=== PATIENT | female | born 1970 | race Two or more races ===

== ENCOUNTER 2022-04-21 04:01 | Inpatient (IN) | payer OTHER ==
[2022-04-15 10:07] VITALS: BMI 23.3
[2022-04-21] MEDS ORDERED: ceFAZolin SODIUM 1 GM VIAL ONE ×2 (07:30→17:15)
[2022-04-21] MEDS ORDERED: CEFAZOLIN 2 GM in DEXTROSE 5%-WATER - 100 ML IVPB ONE (08:00)
[2022-04-21] MEDS ORDERED: LIDOCAINE HCL/PF 2% SDV 5ML VIAL ONE (08:34)
[2022-04-21] MEDS ORDERED: DEXAMETHASONE SOD PHOSPHATE 4 MG/1 ML VIAL ONE (08:34)
[2022-04-21] MEDS ORDERED: PROPOFOL 20 ML ONE ×2 (08:34→09:55)
[2022-04-21] MEDS ORDERED: MIDAZOLAM HCL 2 MG/2 ML SINGLE DOSE VIAL ONE (08:35)
[2022-04-21] MEDS ORDERED: BUPIVACAINE HCL/PF 0.25% (2.5MG/ML) 10 ML VIAL ONE (08:41)
[2022-04-21] MEDS ORDERED: BUPIVACAINE LIPOSOME/PF (EXPAREL) 266 MG/20 ML VIAL ONE (08:41)
[2022-04-21] MEDS ORDERED: ceFAZolin SODIUM 1 GM VIAL IVPB ONE (10:02)
[2022-04-21] MEDS ORDERED: ROCURONIUM BROMIDE 50 MG/5 ML SYRINGE ONE (11:14)
[2022-04-21] MEDS ORDERED: NEOSTIGMINE METHYLSULFATE 0.5 MG/ML - 10 ML MDV ONE (11:40)
[2022-04-21] MEDS ORDERED: GLYCOPYRROLATE 0.2 MG/1 ML VIAL ONE (11:40)
[2022-04-21] MEDS ORDERED: KETOROLAC TROMETHAMINE 30 MG/1 ML VIAL ONE (11:51)
[2022-04-21] MEDS ORDERED: IBUPROFEN 800 MG/8 ML IJ IVPB PRN (12:19)
[2022-04-21] MEDS ORDERED: ONDANSETRON 4 MG/2 ML VIAL IVPUSH PRN (12:19)
[2022-04-21] MEDS ORDERED: ACETAMINOPHEN 325 MG TABLET (FP) PO PRN (12:19)
[2022-04-21] MEDS ORDERED: oxyCODONE HCL 5 MG TABLET PO PRN (12:19)
[2022-04-21] MEDS ORDERED: BISACODYL 5 MG TABLET.DR (FP) PO PRN (12:19)
[2022-04-21] MEDS ORDERED: FENTANYL CITRATE/PF 50 MCG/ML VIAL ONE ×2 (12:34→12:40)
[2022-04-21] MEDS ORDERED: HYDROmorphone *PCA* 10MG/50ML DISP.SYRIN ONE (12:45)
[2022-04-21] MEDS ORDERED: ACETAMINOPHEN 1000 MG/100 ML BAG IVPB ONE (12:49)
[2022-04-21] MEDS ORDERED: HYDROmorphone *PCA* 10MG/50ML DISP.SYRIN PCA SCH (13:00)
[2022-04-21] MEDS: LACTATED RINGERS SOLUTION 1,000 ML IV SCH (14:40)
[2022-04-21] MEDS ORDERED: DEXTROSE 5%-WATER - 50 ML IVPB ONE (17:15)
[2022-04-21] MEDS: CEFAZOLIN 1 GM in DEXTROSE 5%-WATER - 1 GM/50 ML IVPB IVPB SCH (17:18)
[2022-04-21 20:40] LABS: HEMATOCRIT 33.9 % (32.4-45.2); HEMOGLOBIN 10.8 GM/dL (10.7-15.3); MCHC 31.7 g/dl (32.0-36.0)
[2022-04-21 20:44] LABS: MCH 24.3 pg (25.7-33.7); MEAN CELL VOLUME 76.7 fl (80-96); PLATELET COUNT 212 10^3/uL (134-434); RBC 4.42 M/mm3 (3.60-5.2); RDW 25.2 % (11.6-15.6); WHITE BLOOD COUNT 11.3 K/mm3 (4.0-10.0)
[2022-04-21 20:51] LABS: BLOOD UREA NITROGEN 9.8 mg/dL (7-18); CALCIUM 8.6 mg/dL (8.5-10.1)
[2022-04-21 20:55] LABS: CREATININE 0.8 mg/dL (0.55-1.3)
[2022-04-21] MEDS ORDERED: ENOXAPARIN NA (PORCINE) 40 MG/0.4 ML DISP.SYRIN SQ SCH (22:30)
[2022-04-21] MEDS: ENOXAPARIN NA (PORCINE) 40 MG/0.4 ML DISP.SYRIN SQ SCH (22:43)
[2022-04-22] MEDS ORDERED: DEXTROSE 5%-WATER - 50 ML IVPB ONE ×2 (01:15→09:19)
[2022-04-22] MEDS ORDERED: ceFAZolin SODIUM 1 GM VIAL ONE ×2 (01:15→09:19)
[2022-04-22] MEDS: CEFAZOLIN 1 GM in DEXTROSE 5%-WATER - 1 GM/50 ML IVPB IVPB SCH ×2 (01:22→09:23)
[2022-04-22] MEDS: SIMETHICONE 80 MG TAB.CHEW (FP) PO PRN ×2 (09:22→17:04)
[2022-04-22] MEDS ORDERED: ENOXAPARIN NA (PORCINE) 40 MG/0.4 ML DISP.SYRIN SQ SCH (10:00)
[2022-04-22] MEDS: HYDROXYCHLOROQUINE SO4 200 MG TABLET (FP) PO SCH (10:50)
[2022-04-22] MEDS: oxyCODONE HCL 5 MG TABLET PO PRN ×2 (10:50→17:04)
[2022-04-22 10:54] LABS: HEMATOCRIT 33.5 % (32.4-45.2); MCH 25.3 pg (25.7-33.7); MCHC 32.7 g/dl (32.0-36.0); MEAN CELL VOLUME 77.2 fl (80-96); MEAN PLT VOLUME 9.9 fl (7.5-11.1); PLATELET COUNT 206 10^3/uL (134-434); RBC 4.34 M/mm3 (3.60-5.2); RDW 25.3 % (11.6-15.6); WHITE BLOOD COUNT 9.3 K/mm3 (4.0-10.0)
[2022-04-22 11:31] LABS: CALCIUM 8.7 mg/dL (8.5-10.1)
[2022-04-22 11:35] LABS: CREATININE 0.7 mg/dL (0.55-1.3)
[2022-04-22] MEDS: LACTATED RINGERS SOLUTION 1,000 ML IV SCH (17:04)
[2022-04-22] MEDS: DOCUSATE SODIUM 100 MG CAPSULE (FP) PO PRN (17:10)
[2022-04-22] MEDS: ENOXAPARIN NA (PORCINE) 40 MG/0.4 ML DISP.SYRIN SQ SCH (21:24)
[2022-04-23] MEDS: SIMETHICONE 80 MG TAB.CHEW (FP) PO PRN ×2 (03:40→08:17)
[2022-04-23] MEDS: DOCUSATE SODIUM 100 MG CAPSULE (FP) PO PRN (03:40)
[2022-04-23] MEDS: oxyCODONE HCL 5 MG TABLET PO PRN ×2 (03:41→08:15)
[2022-04-23] MEDS: HYDROXYCHLOROQUINE SO4 200 MG TABLET (FP) PO SCH (10:38)
[2022-04-23 13:38] VITALS: BP 113/77; PULSE 98; TEMP 98.3
== END 2022-04-23 17:10 | disposition home or self-care (01) | DRG 519 ==
LOC: J2C 04:01 → J3W 14:54
PROVIDERS: ADMIT Obstetrics & Gynecology; ATTEND Obstetrics & Gynecology
PROC: 0UT70ZZ Resection of Bilateral Fallopian Tubes, Open Approach (ICD-10-PCS; 2022-04-21)
PROC: 0UT90ZZ Resection of Uterus, Open Approach (ICD-10-PCS; principal; 2022-04-21 09:00)
DX: D25.9 Leiomyoma of uterus, unspecified (principal)
CPT/HCPCS: 36415; 80048; 80053; 85027; 85610; 85730; 86850; 86900; 86901; 88302-TC; 88307-TC; 94010; 94760; C9803-CS; U0003; U0005

== ENCOUNTER 2022-05-03 14:54 | Emergency (ER) | payer OTHER ==
[2022-05-03 15:31] VITALS: BP 121/73; PULSE 97; TEMP 98.4; BMI 23.6
[2022-05-03] MEDS ORDERED: ACETAMINOPHEN 1000 MG/100 ML BAG IVPB ONE (17:50)
[2022-05-03] MEDS ORDERED: ONDANSETRON 4 MG/2 ML VIAL IVPUSH ONE (17:50)
[2022-05-03] MEDS ORDERED: SODIUM CHLORIDE 0.9% 500 ML INFUS.BAG IV ONE (17:50)
[2022-05-03] MEDS ORDERED: ONDANSETRON 4 MG/2 ML VIAL ONE (19:16)
[2022-05-03] MEDS ORDERED: ACETAMINOPHEN INJECTION 100 ML IVPB ONE (19:16)
[2022-05-03 19:57] LABS: BASO % 1.1 % (0-2.0); EOS % 6.3 % (0-4.5); HEMOGLOBIN 11.1 GM/dL (10.7-15.3); LYMPH % 32.3 % (8-40); MCH 24.8 pg (25.7-33.7); MCHC 31.7 g/dl (32.0-36.0); MEAN CELL VOLUME 78.1 fl (80-96); MEAN PLT VOLUME 9.5 fl (7.5-11.1); NEUT % 54.3 % (42.8-82.8); PLATELET COUNT 342 10^3/uL (134-434); RBC 4.48 M/mm3 (3.60-5.2); RDW 23.1 % (11.6-15.6); WHITE BLOOD COUNT 7.4 K/mm3 (4.0-10.0)
[2022-05-03 20:10] LABS: EPI CELLS 27 /uL (0-25.1); HYALINE CASTS 6 /uL (0-3.1); URINE APPEARANCE CLEAR; URINE BACTERIA 141 /uL (0-1359); URINE BILIRUBIN NEGATIVE (NEGATIVE); URINE COLOR YELLOW; URINE GLUCOSE (UA) NEGATIVE (NEGATIVE); URINE KETONE TRACE (NEGATIVE); URINE LEUK ESTERASE TRACE (NEGATIVE); URINE NITRITE NEGATIVE (NEGATIVE); URINE PROTEIN NEGATIVE (NEGATIVE); URINE RBC 9 /uL (0-23.9); URINE UROBILINOGEN 0.2 mg/dL (0.2-1.0); URINE WBC 28 /uL (0-25.8)
[2022-05-03 20:17] LABS: BLOOD UREA NITROGEN 8.5 mg/dL (7-18); CALCIUM 9.5 mg/dL (8.5-10.1)
[2022-05-03 20:18] LABS: ALBUMIN 3.9 g/dl (3.4-5.0); MAGNESIUM 2.4 mg/dL (1.8-2.4)
[2022-05-03 20:20] LABS: CREATININE 0.7 mg/dL (0.55-1.3)
[2022-05-03 20:22] LABS: BILIRUBIN,TOTAL 0.4 mg/dL (0.2-1); TOT PROT 8.4 g/dl (6.4-8.2)
[2022-05-03 21:03] LABS: ANISOCYTOSIS 3+; MACROCYTOSIS 0; OVALOCYTE 1+; PLATELET ESTIMATE NORMAL
== END 2022-05-03 23:47 | disposition home or self-care (01) ==
LOC: JER 14:54
PROC: 3E0333Z Introduction of Anti-inflammatory into Peripheral Vein, Percutaneous Approach (ICD-10-PCS; principal; 2022-05-03)
PROC: 3E033GC Introduction of Other Therapeutic Substance into Peripheral Vein, Percutaneous Approach (ICD-10-PCS; 2022-05-03)
DX: R10.84 Generalized abdominal pain (principal)
CPT/HCPCS: 36415; 74177-TC; 80053; 81003; 83690; 83735; 85025; 87086; 99285-25; Q9967